=== PATIENT | female | born 1960 | race African-American/Black ===

== ENCOUNTER 2022-03-26 11:15 | Observation (INO) ==
[2022-03-26] MEDS ORDERED: ASPIRIN 325 MG TABLET PO STA (11:47)
[2022-03-26 11:56] LABS: Basophils % 0.6 % (0.0-0.8); Eosinophils # 0.3 10*3/uL (0.0-0.87); Eosinophils % 4.6 % (0.00-10.9); Hematocrit 36.4 VOL% (35.7-47.0); Hemoglobin 12.2 GM/DL (12.0-16.0); Immature Granulocytes % 0.3 %; Immature Granulocytes Absolute 0.02 #; Lymphocytes # 2.6 10*3/uL (1.4-4.0); Lymphocytes % 37.1 % (21.3-54.2); Mean Corpuscular HGB Conc 33.5 GM/DL (32-36); Mean Corpuscular Volume 91.5 FL (87-102); Mean Platelet Volume 9.1 FL (9.6-12.0); Monocytes # 0.7 10*3/uL (0.11-0.8); Monocytes % 9.2 % (1.7-12.7); Neutrophils % 48.2 % (38.7-73.9); Platelet Count 335 T/CUMM (130-400); Red Blood Count 3.98 MC/CUMM (3.8-5.5); Red Cell Distribution Width 13.4 % (9.3-17.3)
[2022-03-26 12:05] LABS: INR 0.9; PT Patient Result 9.9 SECS (10.1-12.1); Partial Thromboplastin Time 24.5 SECS (23.7-32.9)
[2022-03-26 12:14] LABS: Alanine Aminotransferase 20 U/L (13-56); Albumin 3.3 G/DL (3.4-5.0); Alkaline Phosphatase 89 U/L (45-117); Aspartate Amino Transferase 16 U/L (0-37); Bilirubin,Total < 0.39 MG/DL (0.20-1.00); Blood Urea Nitrogen 12 MG/DL (7-18); Calcium 9.1 MG/DL (8.5-10.1); Carbon Dioxide 30 MMOL/L (21-32); Chloride 107 MMOL/L (98-107); Glucose 98 MG/DL (74-106); Osmolality,Calculated 280.3 MOS/KG (273-304); Potassium 3.7 MMOL/L (3.5-5.1); Sodium 141 MMOL/L (136-145)
[2022-03-26] MEDS ORDERED: ACETAMINOPHEN 325 MG TABLET PO PRN (15:11)
[2022-03-26] MEDS ORDERED: ONDANSETRON 4 MG/2 ML VIAL IV PRN (15:11)
[2022-03-26] MEDS ORDERED: DOCUSATE SODIUM 100 MG CAPSULE PO PRN (15:11)
[2022-03-26] MEDS ORDERED: AZELASTINE NASAL 137 MCG/SPRAY 30 ML BOTTLE BOTH NARES PRN (15:18)
[2022-03-26] MEDS ORDERED: FLUTICASONE 50 MCG NASAL SPRAY 16 GM BOTTLE BOTH NARES PRN (15:18)
[2022-03-26] MEDS ORDERED: ALBUTEROL 0.63 MG/3 ML NEB RESP TX PRN (15:18)
[2022-03-26] MEDS ORDERED: tiZANidine 4 MG TABLET PO PRN (15:18)
[2022-03-26] MEDS ORDERED: ENOXAPARIN 100 MG/ML SYRINGE SUBCUT SCH (15:30)
[2022-03-26] MEDS: ENOXAPARIN 40 MG/0.4 ML SYRINGE SUBCUT SCH (17:46)
[2022-03-26] MEDS: amLODIPine 10 MG TABLET PO SCH (17:46)
[2022-03-26] MEDS: BUDESONIDE/FORMOTEROL 160-4.5 INHALER 6 GM INH SCH (20:53)
[2022-03-26] MEDS: LACTULOSE 20 GM/30 ML UDCUP PO SCH (20:54)
[2022-03-26] MEDS ORDERED: MIRTAZAPINE 15 MG TABLET PO SCH (21:00)
[2022-03-27] MEDS ORDERED: [UNRECOGNIZED DRUG - REMARK] BOTH NARES PRN (00:06)
[2022-03-27] MEDS: ENOXAPARIN 40 MG/0.4 ML SYRINGE SUBCUT SCH ×2 (04:20→16:31)
[2022-03-27 05:26] LABS: Basophils % 0.4 % (0.0-0.8); Eosinophils # 0.3 10*3/uL (0.0-0.87); Hematocrit 36.5 VOL% (35.7-47.0); Hemoglobin 12.1 GM/DL (12.0-16.0); Immature Granulocytes % 0.3 %; Immature Granulocytes Absolute 0.02 #; Lymphocytes # 2.5 10*3/uL (1.4-4.0); Lymphocytes % 36.8 % (21.3-54.2); Mean Corpuscular HGB Conc 33.2 GM/DL (32-36); Mean Corpuscular Volume 92.2 FL (87-102); Monocytes # 0.7 10*3/uL (0.11-0.8); Monocytes % 9.9 % (1.7-12.7); Neutrophils % 48.6 % (38.7-73.9); Platelet Count 325 T/CUMM (130-400); Red Blood Count 3.96 MC/CUMM (3.8-5.5); Red Cell Distribution Width 13.4 % (9.3-17.3); White Blood Count 6.7 T/CUMM (4-12)
[2022-03-27 05:44] LABS: Calcium 9.1 MG/DL (8.5-10.1); Potassium 3.8 MMOL/L (3.5-5.1); Risk Ratio 3.33; VLDL Cholesterol 43.6 MG/DL
[2022-03-27] MEDS ORDERED: LEVOTHYROXINE 50 MCG TABLET PO SCH (07:00)
[2022-03-27] MEDS ORDERED: LINACLOTIDE 145 MCG CAPSULE PO SCH (07:30)
[2022-03-27] MEDS ORDERED: TOPIRAMATE 100 MG TABLET PO SCH (09:00)
[2022-03-27] MEDS ORDERED: FEXOFENADINE 180 MG TABLET PO SCH (09:00)
[2022-03-27] MEDS ORDERED: PANTOPRAZOLE 40 MG TABLET PO SCH (09:00)
[2022-03-27] MEDS ORDERED: CITALOPRAM 40 MG TABLET PO SCH (09:00)
[2022-03-27] MEDS: LACTULOSE 20 GM/30 ML UDCUP PO SCH (09:20)
[2022-03-27] MEDS: amLODIPine 10 MG TABLET PO SCH (09:20)
[2022-03-27] MEDS: BUDESONIDE/FORMOTEROL 160-4.5 INHALER 6 GM INH SCH (09:22)
[2022-03-27 14:56] VITALS: BP 195/87
[2022-03-27] MEDS ORDERED: hydrALAZINE 25 MG TABLET PO SCH (15:00)
== END 2022-03-27 18:23 | disposition home or self-care (01) ==
LOC: N.TELEN 11:15 → N.ED 11:15 → SUATTDRO 15:05 → N.TELEN 15:45
PROVIDERS: ADMIT Hospitalist; ATTEND Phlebology